=== PATIENT | male | born 1990 | race Caucasian/White ===

== ENCOUNTER 2023-08-30 19:51 | Emergency (ER) | payer OTHER ==
[~2023-08-30] VITALS: Ht 177.8 cm; Wt 77.1 kg
[2023-08-30 20:05] VITALS: BP 139/79; PULSE 84; RESP 16; TEMP 98.1; O2SAT 100
[2023-08-30] MEDS ORDERED: ACET-8905 PO (21:47)
[2023-08-30] MEDS: KETOROLAC 60 MG/2 ML VIAL IM ONE (22:01)
== END 2023-08-30 22:10 | disposition home or self-care (01) ==
LOC: MED 19:51
DX: S93.402A Sprain of unspecified ligament of left ankle, initial encounter (principal); F17.200 Nicotine dependence, unspecified, uncomplicated; Z98.890 Other specified postprocedural states; X58.XXXA Exposure to other specified factors, initial encounter; Y92.89 Other specified places as the place of occurrence of the external cause; Y93.89 Activity, other specified; Y99.8 Other external cause status
CPT/HCPCS: 73610; 96372; 99283; J1885